=== PATIENT | female | born 1950 ===

== ENCOUNTER 2016-10-19 06:43 | Emergency (ER) | payer MEDICARE, OTHER ==
[2016-10-19 06:51] VITALS: BP 124/84; PULSE 80; RESP 16; TEMP 98.4; O2SAT 99
[2016-10-19] MEDS ORDERED: guaiFENesin DM 100 mg-10 mg/5 ml UD PO STA (07:28)
--- NOTE | 2016-10-19 07:30 | C.PDOC ---
History Of Present Illness 66 y/o female presents to ED with complaints of cough for 2 weeks. Patient has taken over the counter medications with no relief. Patient denies chest pain, SOB, fever or any other complaints at this time. Time Seen by Provider: 10/19/16 07:13 Chief Complaint (Nursing): Cough, Cold, Congestion History Per: Patient History/Exam Limitations: no limitations Onset/Duration Of Symptoms: Days Current Symptoms Are (Timing): Still Present Associated Symptoms: Cough. denies: Fever, Chills Past Medical History Reviewed: Historical Data, Nursing Documentation, Vital Signs Vital Signs: Last Vital Signs Temp 98.4 F 10/19/16 07:00 Pulse 80 10/19/16 07:00 Resp 16 10/19/16 07:00 BP 124/84 10/19/16 07:00 Pulse Ox 99 10/19/16 08:59 - Medical History PMH: Bipolar Disorder, Hypercholesterolemia Other Surgeries: hysterectomy - [facility] Procedures PHYSICAL THERAPY NEC (06/19/14) Family History: States: Unknown Family Hx - Social History Hx Tobacco Use: No Hx Alcohol Use: No Hx Substance Use: No - Immunization History Hx Tetanus Toxoid Vaccination: No Hx Influenza Vaccination: No Hx Pneumococcal Vaccination: No Review Of Systems Constitutional: Negative for: Fever, Chills, Sweats Cardiovascular: Negative for: Chest Pain Respiratory: Positive for: Cough. Negative for: Shortness of Breath Gastrointestinal: Negative for: Nausea, Vomiting, Diarrhea Genitourinary: Negative for: Dysuria Neurological: Negative for: Weakness, Headache, Dizziness Physical Exam - Physical Exam Appears: Non-toxic, No Acute Distress Skin: Normal Color, Warm Head: Atraumatic, Normacephalic Eye(s): bilateral: Normal Inspection, PERRL, EOMI Nose: Normal Oral Mucosa: Moist Throat: Normal Neck: Normal ROM Chest: Symmetrical Cardiovascular: Rhythm Regular Respiratory: Normal Breath Sounds, No Rales, No Rhonchi, No Wheezing Extremity: Bilateral: Atraumatic, No Pedal Edema, Normal Color And Temperature, Normal ROM Neurological/Psych: Oriented x3, Normal Speech ED Course And Treatment O2 Sat by Pulse Oximetry: 99 Medical Decision Making Medical Decision Makin y.o female with symptoms c/w URI Lungs clear bilaterally with good air entry. Patient has no fever or signs of respiratory distress. Denies chest pain EKG was obtained during triage NS at 68 bpm with normal axis and no ischemic changes Patient was treated with Zithromax and robitussin Patient remained afebrile and reports improvement of sx. Will DC with rx Disposition Counseled Patient/Family Regarding: Diagnosis, Need For Followup, Rx Given - Disposition Referrals: Jarett Snyder MD [Staff Provider] - Disposition: HOME/ ROUTINE Disposition Time: 07:35 Condition: STABLE Additional Instructions: Vaya a guardado mdico o la clnica en 2-5 holt sin falta, para mas evaluacin. [place] los medicamentos satya indicado. Volver a la clare de emergencia en cualquier momento si los sntomas persisten o empeoran. 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 - Scribe Statement The provider has reviewed the documentation as recorded by the Mayaibmilagros Lynch All medical record entries made by the Scribe were at my direction and personally dictated by me. I have reviewed the chart and agree that the record accurately reflects my personal performance of the history, physical exam, medical decision making, and the department course for this patient. I have also personally directed, reviewed, and agree with the discharge instructions and disposition.
[2016-10-19] MEDS ORDERED: guaiFENesin 100 mg/5 ml Syrup UD ONE (07:31)
--- NOTE | 2016-10-25 20:50 | CARD ---
APPROVED REPORT EKG Measurement Heart [id number] VA 122P23 [id number] <Conclusion> Poor data quality, interpretation may be adversely affected Normal sinus rhythm Normal ECG
== END 2016-10-19 07:45 | disposition home or self-care (01) ==
LOC: C.ER 06:43
DX: J06.9 Acute upper respiratory infection, unspecified (principal)

== ENCOUNTER 2017-07-04 13:31 | Emergency (ER) | payer MEDICARE, MEDICAID ==
--- NOTE | 2017-07-04 14:27 | RAD ---
PROCEDURE: CHEST RADIOGRAPH, 1 VIEW HISTORY: chest pain COMPARISON: 07/04/2016 FINDINGS: LUNGS: Clear. PLEURA: No pneumothorax or pleural fluid seen. CARDIOVASCULAR: Normal. OSSEOUS STRUCTURES: No significant abnormalities. VISUALIZED UPPER ABDOMEN: Normal. OTHER FINDINGS: None. IMPRESSION: No active disease.
--- NOTE | 2017-07-04 14:32 | C.PDOC ---
History Of Present Illness 67 y/o female presents to ED with complaints of constant mid sternal "burning" chest pain worse when taking deep breaths or laying supine for 3 days. Patient reports no change on exertion or sob on exertion. Patient state she has never had this pain before and reports feeling dizzy, lightheaded and weak. Patient denies leg swelling, abdominal pain, reflux symptoms, fever, chills URI symptoms or any other complaints at this time. Time Seen by Provider: 07/04/17 14:07 Chief Complaint (Nursing): Chest Pain History Per: Patient History/Exam Limitations: no limitations Onset/Duration Of Symptoms: Days Current Symptoms Are (Timing): Still Present Quality: Burning Past Medical History Reviewed: Historical Data, Nursing Documentation, Vital Signs Vital Signs: Last Vital Signs Temp 98.2 F 07/04/17 13:41 Pulse 71 07/04/17 14:55 Resp 20 07/04/17 14:55 BP 114/82 07/04/17 14:55 Pulse Ox 98 07/04/17 14:55 - Medical History PMH: Anxiety, Bipolar Disorder, Depression, Hypercholesterolemia Surgical History: No Surg Hx - [facility] Procedures PHYSICAL THERAPY NEC (06/19/14) Family History: States: No Known Family Hx - Social History Hx Tobacco Use: No Hx Alcohol Use: No Hx Substance Use: No - Immunization History Hx Tetanus Toxoid Vaccination: No Hx Influenza Vaccination: No Hx Pneumococcal Vaccination: No Review Of Systems Constitutional: Negative for: Fever, Chills Cardiovascular: Positive for: Chest Pain, Light Headedness. Negative for: Edema Respiratory: Negative for: Cough, Shortness of Breath Gastrointestinal: Negative for: Nausea, Vomiting Neurological: Positive for: Weakness, Dizziness. Negative for: Numbness Physical Exam - Physical Exam Appears: Non-toxic, No Acute Distress Skin: Warm, Dry, No Rash Head: Atraumatic, Normacephalic Eye(s): bilateral: Normal Inspection Oral Mucosa: Moist Neck: Supple Chest: Symmetrical Cardiovascular: Rhythm Regular Respiratory: Normal Breath Sounds, No Rales, No Rhonchi, No Wheezing Gastrointestinal/Abdominal: Soft, No Tenderness, No Guarding, No Rebound Extremity: No Pedal Edema, Capillary Refill (<2 seconds) Neurological/Psych: Oriented x3 ED Course And Treatment - Laboratory Results Result Diagrams: 07/04/17 14:31 02/07/18 14:31 Lab Interpretation: Abnormal (D-dimer 364) ECG: Interpreted By Me, Viewed By Me ECG Rhythm: Sinus Rhythm Rate From EC (BPM ) O2 Sat by Pulse Oximetry: 99 (RA) Pulse Ox Interpretation: Normal - Radiology CXR: Viewed By Me, Read By Radiologist CXR Interpretation: Yes: No Acute Disease - CT Scan/US CT chest angio PE protocol Other Rad Studies (CT/US): Read By Radiologist CT/US Interpretation: Accession No. : [id number]. Patient Name / ID : JANNA MOCK / [id number]. Exam Date : 07/04/2017 15:49:24 ( Approved ). Study Comment : Sex / Age : F / 67Y. Creator : Aaliyah Huynh. Dictator : Dani Guerra MD. Bunch Maker Hand : Motorcycle Riding Instructor : Dani Guerra MD. Approver2 : Report Date : 07/04/2017 16:03:38. My Comment : . PROCEDURE: CT Chest with contrast (Pulmonary Angiogram). HISTORY: chest pain elevated d dimer. COMPARISON: None available. TECHNIQUE: Axial computed tomography images were obtained of the chest in the pulmonary arterial phase of enhancement. Coronal and sagittal reformatted images were created and reviewed. Intravenous contrast dose: 100 mL Visipaque 320. Radiation dose: Total exam DLP = 334.73 mGy-cm. This CT exam was performed using one or more of the following dose reduction techniques: Automated exposure control, adjustment of the mA and/or kV according to patient size, and/or use of iterative reconstruction technique. FINDINGS: PULMONARY ARTERIES: Unremarkable. No pulmonary embolism. AORTA: No acute findings. No thoracic aortic aneurysm. LUNGS: Unremarkable. No nodule, mass or pulmonary consolidation. PLEURAL SPACES: Unremarkable. No effusion or pneuomothorax. HEART: Unremarkable. No cardiomegaly. No significant pericardial effusion. LYMPH NODES: No lymphadenopathy. BONES, CHEST WALL: Unremarkable. No fracture or destructive lesion. OTHER FINDINGS: Unremarkable. IMPRESSION: Unremarkable CT pulmonary angiogram. No pulmonary embolus. Reevaluation Time: 17:07 Reassessment Condition: Improved Disposition Counseled Patient/Family Regarding: Studies Performed, Diagnosis, Need For Followup, Rx Given - Disposition Referrals: Jarett Snyder MD [Staff Provider] - Disposition: HOME/ ROUTINE Disposition Time: 17:21 Condition: STABLE Prescriptions: Naproxen [Naprosyn] 1 tab PO BID PRN #25 tab PRN Reason: Pain Pantoprazole Sodium [Protonix] 40 mg PO DAILY #14 ect Instructions: Noncardiac Chest Pain (ED) Forms: [employer] (Spanish) - Clinical Impression Clinical Impression: Chest pain - Scribe Statement The provider has reviewed the documentation as recorded by the Mayaibmilagros Lynch All medical record entries made by the Mayaibmilagros were at my direction and personally dictated by me. I have reviewed the chart and agree that the record accurately reflects my personal performance of the history, physical exam, medical decision making, and the department course for this patient. I have also personally directed, reviewed, and agree with the discharge instructions and disposition.
[2017-07-04 14:37] LABS: BASO # 0.1 K/uL (0.0-0.2); EOS # 0.2 K/uL (0.0-0.7); HEMOGLOBIN 13.5 g/dL (11.0-16.0); LYMPH # 2.3 K/uL (1.0-4.3); LYMPH % 38.5 % (20.0-40.0); MEAN CELL VOLUME 87.2 fL (81.0-99.0); MEAN CORPUSCULAR HEMOGLOBIN 30.1 pg (27.0-31.0); MEAN CORPUSCULAR HGB CONC 34.5 g/dL (33.0-37.0); MEAN PLATELET VOLUME 9.2 fL (7.2-11.7); MONO # 0.4 K/uL (0.0-0.8); MONO % 7.2 % (0.0-10.0); NEUT % 50.3 % (50.0-75.0); NRBC % 0.1 % (0.0-2.0); RBC 4.48 Mil/uL (3.80-5.20)
[2017-07-04 14:48] LABS: ALB/GLOB RATIO 1.2 (1.0-2.1); ALBUMIN 4.2 g/dL (3.5-5.0); ALT/SGPT 20 U/L (9-52); AST/SGOT 24 U/L (14-36); BLOOD UREA NITROGEN 20 mg/dL (7-17); CALCIUM 9.6 mg/dl (8.6-10.4); GFR AFRICAN-AMERICAN > 60; GFR NON-AFRICAN AMERICAN > 60; LIPASE 41 U/L (23-300)
[2017-07-04 14:50] LABS: SQUAMOUS EPITHIAL 2 /hpf (0-5); URINE BACTERIA RARE (<OCC); URINE BILIRUBIN NEGATIVE (NEGATIVE); URINE BLOOD NEGATIVE (NEGATIVE); URINE CLARITY Hazy (Clear); URINE COLOR Yellow (YELLOW); URINE GLUCOSE (UA) NORMAL (Normal); URINE LEUKOCYTE ESTERASE 1+ Leu/uL (Negative); URINE NITRATE NEGATIVE (NEGATIVE); URINE PROTEIN NEGATIVE (NEGATIVE); URINE UROBILINOGEN NORMAL mg/dL (0.2-1.0)
[2017-07-04] MEDS ORDERED: Iodixanol 320 MG/ML 100 ML BOTTLE IV ONE (15:28)
--- NOTE | 2017-07-04 16:16 | CT ---
PROCEDURE: CT Chest with contrast (Pulmonary Angiogram) HISTORY: chest pain elevated d dimer COMPARISON: None available. TECHNIQUE: Axial computed tomography images were obtained of the chest in the pulmonary arterial phase of enhancement. Coronal and sagittal reformatted images were created and reviewed. Intravenous contrast dose: 100 mL Visipaque 320 Radiation dose: Total exam DLP = 334.73 mGy-cm. This CT exam was performed using one or more of the following dose reduction techniques: Automated exposure control, adjustment of the mA and/or kV according to patient size, and/or use of iterative reconstruction technique. FINDINGS: PULMONARY ARTERIES: Unremarkable. No pulmonary embolism. AORTA: No acute findings. No thoracic aortic aneurysm. LUNGS: Unremarkable. No nodule, mass or pulmonary consolidation. PLEURAL SPACES: Unremarkable. No effusion or pneuomothorax. HEART: Unremarkable. No cardiomegaly. No significant pericardial effusion. LYMPH NODES: No lymphadenopathy. BONES, CHEST WALL: Unremarkable. No fracture or destructive lesion OTHER FINDINGS: Unremarkable. IMPRESSION: Unremarkable CT pulmonary angiogram. No pulmonary embolus.
[2017-07-04 17:10] VITALS: BP 118/84; PULSE 62; RESP 18; TEMP 97.7; O2SAT 99
[2017-07-04] MEDS ORDERED: Naproxen 550 mg Tab PO ONE (17:11)
[2017-07-04] MEDS ORDERED: Naproxen 550 mg Tab PO STA (17:14)
--- NOTE | 2017-07-07 12:22 | CARD ---
APPROVED REPORT EKG Measurement Heart [id number] WI 136P26 [id number] <Conclusion> Normal sinus rhythm Normal ECG
== END 2017-07-04 17:27 | disposition home or self-care (01) ==
LOC: C.ER 13:31
DX: R07.9 Chest pain, unspecified (principal); E78.00 Pure hypercholesterolemia, unspecified
CPT/HCPCS: 71045; 71275; 80053; 81001; 83690; 84484; 85025; 85378; 96374; 99285; C9113; Q9967

== ENCOUNTER 2018-01-21 17:00 | Emergency (ER) | payer MEDICARE, OTHER ==
[2018-01-21 17:05] VITALS: RESP 18
[2018-01-21] MEDS ORDERED: Albuterol-Ipratrop 3 mg / 0.5 (3 ml) UD ONE ×2 (17:20→17:30)
[2018-01-21] MEDS ORDERED: Albuterol-Ipratrop 3 mg / 0.5 (3 ml) UD INH STA (17:30)
--- NOTE | 2018-01-21 17:33 | C.PDOC ---
History Of Present Illness 67-year-old female, presents to the emergency department with complaints of a cough, and runny nose for the past 3-4 days. Today, cough has been associated with chest discomfort, radiating to the back. She denies any hx of asthma, bronchitis or lung disease. Time Seen by Provider: 01/21/18 17:13 Chief Complaint (Nursing): Cough, Cold, Congestion History Per: Patient History/Exam Limitations: no limitations Current Symptoms Are (Timing): Still Present Past Medical History Reviewed: Historical Data, Nursing Documentation, Vital Signs Vital Signs: Last Vital Signs Temp 98 F 01/21/18 18:57 Pulse 86 01/21/18 18:57 Resp 18 01/21/18 18:57 BP 136/72 01/21/18 18:57 Pulse Ox 98 01/21/18 18:57 - Medical History PMH: Anxiety, Bipolar Disorder, Depression, Hypercholesterolemia - [facility] Procedures PHYSICAL THERAPY NEC (06/19/14) Family History: States: No Known Family Hx - Social History Hx Tobacco Use: No Hx Alcohol Use: No Hx Substance Use: No - Immunization History Hx Tetanus Toxoid Vaccination: No Hx Influenza Vaccination: No Hx Pneumococcal Vaccination: No Review Of Systems Constitutional: Negative for: Fever, Chills Cardiovascular: Negative for: Chest Pain, Palpitations Respiratory: Positive for: Cough, Shortness of Breath Musculoskeletal: Negative for: Back Pain Neurological: Negative for: Weakness, Numbness, Headache, Dizziness Physical Exam - Physical Exam Appears: Non-toxic, No Acute Distress Skin: Normal Color, Warm, Dry, No Rash Head: Atraumatic, Normacephalic Eye(s): bilateral: Normal Inspection, PERRL, EOMI Nose: Normal Oral Mucosa: Moist Tongue: Normal Appearing, No Swelling Lips: Normal Appearing Throat: Normal, No Erythema, No Exudate Neck: Normal ROM, Supple Chest: Symmetrical Cardiovascular: Rhythm Regular, No Murmur Respiratory: No Decreased Breath Sounds, No Accessory Muscle Use, Wheezing ( bilateral expiratory wheezing) Gastrointestinal/Abdominal: Soft, No Tenderness Extremity: Normal ROM, No Deformity, No Swelling Neurological/Psych: Oriented x3, Normal Speech, Normal Motor Gait: Steady ED Course And Treatment O2 Sat by Pulse Oximetry: 99 (RA) Pulse Ox Interpretation: Normal Medical Decision Making Medical Decision Making: Plan: * Chest X-Ray * Duoneb, Solu-Medrol * Peak Flow * Reassess and Disposition On re-exam, the patient reports improvement of symptoms. Lungs are CTA, heart is RRR, abdomen is soft, non-tender and tolerating PO well. Pt is ambultory in the Ed with steady gait. Follow up with the medical doctor within 1-2 days. Return if worsened. Disposition - Disposition Referrals: Jarett Snyder MD [Staff Provider] - Disposition: HOME/ ROUTINE Disposition Time: 18:43 Condition: STABLE Additional Instructions: Follow up with the medical doctor within 1-2 days. Return if worsened. Prescriptions: Albuterol HFA [Ventolin HFA 90 mcg/actuation (8 g)] 1 puff IH Q6 #100 puff Loratadine [Claritin] 10 mg PO DAILY #10 tab predniSONE [Prednisone] 20 mg PO BID #10 tab Spacer, Inhalation [Aerochamber] 1 dev IH Q4 #1 dev Instructions: Acute Bronchitis Forms: [employer] (Armenian) Print Language: MONEGASQUE - Clinical Impression Clinical Impression: Bronchitis - Scribe Statement The provider has reviewed the documentation as recorded by the Scribe (Jenny Willard) All medical record entries made by the Scribe were at my direction and personally dictated by me. I have reviewed the chart and agree that the record accurately reflects my personal performance of the history, physical exam, medical decision making, and the department course for this patient. I have also personally directed, reviewed, and agree with the discharge instructions and disposition.
[2018-01-21] MEDS ORDERED: MethylPREDNISolone 40 mg Vial IM STA (17:45)
[2018-01-21] MEDS ORDERED: MethylPREDNISolone 40 mg Vial ONE (18:02)
--- NOTE | 2018-01-21 18:19 | RAD ---
Date of service: 01/21/2018 HISTORY: cough, SOB COMPARISON: Chest radiograph dated 07/04/2017. FINDINGS: LUNGS: No active pulmonary disease. PLEURA: No significant pleural effusion identified, no pneumothorax apparent. CARDIOVASCULAR: Normal. OSSEOUS STRUCTURES: Unchanged. VISUALIZED UPPER ABDOMEN: Normal. OTHER FINDINGS: None. IMPRESSION: No active disease.
[2018-01-21 18:58] VITALS: BP 136/72; PULSE 86; TEMP 98
--- NOTE | 2018-01-23 15:17 | CARD ---
APPROVED REPORT Date of service: 01/21/2018 EKG Measurement Heart [id number] MS 120P68 [id number] <Conclusion> Normal sinus rhythm Normal Electrocardiogram
[2018-01-24 07:55] VITALS: O2SAT 99
== END 2018-01-21 18:58 | disposition home or self-care (01) ==
LOC: C.ER 17:00
DX: J40 Bronchitis, not specified as acute or chronic (principal)
CPT/HCPCS: 71045; 93005; 96372; 99285; J2920

== ENCOUNTER 2018-07-17 10:23 | Outpatient (CLI) | payer MEDICARE, OTHER | END 2018-07-17 10:24 | disposition home or self-care (01) | LOC: C.PAT 10:23 | DX: H25.011 Cortical age-related cataract, right eye (principal) ==

== ENCOUNTER 2018-07-24 05:54 | Day surgery (SDC) | payer MEDICARE, OTHER ==
[2018-07-17 11:15] VITALS: BMI 23.3
[2018-07-24] MEDS ORDERED: Cyclopentolate 1% Opth (2 ml) OD SCH (06:00)
[2018-07-24] MEDS ORDERED: Lactated Ringer's 500 ML IV ONE ×2 (06:00→06:35)
[2018-07-24] MEDS ORDERED: Ketorolac Tromethamine 0.5% Opth Soln (3 ml) OD SCH (06:00)
[2018-07-24] MEDS ORDERED: Tropicamide 0.5% Opht Sol OD SCH (06:00)
[2018-07-24] MEDS ORDERED: Ciprofloxacin 0.3% OPTH SOLN OD SCH (06:00)
[2018-07-24] MEDS ORDERED: Phenylephrine 2.5% Opht Soln OD SCH (06:00)
[2018-07-24] MEDS ORDERED: Povidone Iodine Ophthalmic 5% Soln ONE (07:35)
[2018-07-24] MEDS ORDERED: Carbachol 0.01% IO ONE ×2 (07:35→07:39)
[2018-07-24] MEDS ORDERED: Chondroitin/Hyaluronate Opth Syringe KIT (0.55 ml-0.5 ml) IO ONE (07:36)
[2018-07-24] MEDS ORDERED: Tetracaine 0.5% Ophth (OR ONLY) ONE (07:36)
[2018-07-24] MEDS ORDERED: Lidocaine 2% MPF (5 ml) Inj ONE (07:37)
[2018-07-24] MEDS ORDERED: Hyaluronidase Human, Recombi 150 U/ML VIAL ONE (07:37)
[2018-07-24] MEDS ORDERED: Tobramycin/Dexamethasone OPHT OINT ONE (07:38)
[2018-07-24 09:46] VITALS: BP 117/71; PULSE 75; RESP 18; TEMP 97.5; O2SAT 99
--- NOTE | 2018-07-24 21:19 | OP ---
PROCEDURE DATE: 07/24/2018 PREOPERATIVE DIAGNOSIS: Mature cataract, right eye. POSTOPERATIVE DIAGNOSIS: Mature cataract, right eye. PROCEDURE: Phacoemulsification, right eye, insertion of posterior chamber lens implant. SURGEON: Yan Tirado MD. TYPE OF ANESTHESIA: Local with intravenous sedation. PROCEDURE: The patient was brought into the operating room, placed in supine position, prepped and draped in the usual fashion for ophthalmic surgery. Lid speculum was inserted, lids and exposing globe. A side-port incision was made superiorly and inferiorly with a disposable sharp blade. Anterior chamber was filled with Viscoat. A near clear corneal incision was made temporally with a 2.75-mm keratome. Capsulorrhexis was then performed with Utrata forceps. Hydrodissection carried out with balanced salt solution. Nucleus was phacoemulsified. Remaining cortical fragments were removed with a split irrigation and aspiration system. The capsular sac was filled with Provisc. A posterior chamber lens was then injected into the capsular sac and rotated into horizontal position. Provisc was aspirated out of the anterior chamber. The pupil was constricted with Miochol. The wound was found to be watertight. Topical Betadine, Timoptic, and TobraDex ointment and pressure patch were applied. The patient tolerated the procedure well. Yan Tirado MD
== END 2018-07-24 10:22 | disposition home or self-care (01) ==
LOC: C.SDS 05:54
PROVIDERS: ATTEND Ophthalmology
DX: H25.011 Cortical age-related cataract, right eye (principal)
CPT/HCPCS: 66984; J3470; J7120